=== PATIENT | female | born 1930 | race Hispanic/Latino ===

== ENCOUNTER → 2018-04-19 | Outpatient (CLI) | payer MEDICARE ==
[~2018-04-19] MED LIST: ALBU8.5H8 IH; ALEN70TA47 PO; BRIM5DRO OP; LEVO75TA10 PO; VITAD50000 PO; XALA2.5OS OD
== END | disposition home or self-care (01) ==
LOC: SHCH 15:17
PROVIDERS: ATTEND Internal Medicine Cardiovascular Disease
DX: R00.2 Palpitations (principal); R94.31 Abnormal electrocardiogram [ECG] [EKG]; R06.00 Dyspnea, unspecified
CPT/HCPCS: 93306

== ENCOUNTER 2018-07-04 13:10 | Emergency (ER) | payer MEDICARE ==
[2018-07-04] MEDS ORDERED: LIDOCAINE HCL 2% 20ML ONE (14:18)
== END 2018-07-04 17:07 | disposition home or self-care (01) ==
LOC: EDH 13:10
DX: S52.591A Other fractures of lower end of right radius, initial encounter for closed fracture (principal); S52.611A Displaced fracture of right ulna styloid process, initial encounter for closed fracture; M81.0 Age-related osteoporosis without current pathological fracture; E07.9 Disorder of thyroid, unspecified; W18.39XA Other fall on same level, initial encounter; Y93.01 Activity, walking, marching and hiking; Y92.89 Other specified places as the place of occurrence of the external cause; Y99.8 Other external cause status
CPT/HCPCS: 25605; 73110; 99284; J3490